=== PATIENT | male | born 1935 | race Caucasian/White ===

== ENCOUNTER 2016-06-21 12:26 | Outpatient (CLI) | payer MEDICARE | END 2016-06-21 12:27 | disposition home or self-care (01) | DX: R33.9 Retention of urine, unspecified (principal); S91.301D Unspecified open wound, right foot, subsequent encounter ==

== ENCOUNTER 2016-08-30 08:00 | Outpatient (CLI) | payer MEDICARE | END 2016-08-30 08:01 | disposition home or self-care (01) | LOC: LAB.F 08:00 | PROVIDERS: ATTEND Internal Medicine | DX: S91.301A Unspecified open wound, right foot, initial encounter (principal) | CPT/HCPCS: 87070; 87077; 87205 ==

== ENCOUNTER 2016-11-29 08:00 | Outpatient (CLI) | payer MEDICARE ==
[2016-11-29 18:38] LABS: CALCIUM 9.6 mg/dL (8.5-10.3); CREATININE 1.8 mg/dL (0.6-1.2); POTASSIUM 4.4 mmol/L (3.5-5.0)
== END 2016-11-29 08:01 | disposition home or self-care (01) ==
LOC: LAB.F 08:00
PROVIDERS: ATTEND Family Medicine
DX: E87.1 Hypo-osmolality and hyponatremia (principal)
CPT/HCPCS: 36415; 80048

== ENCOUNTER 2016-12-03 10:17 | Observation (INO) | payer MEDICARE ==
[2016-12-03 10:55] LABS: CALCIUM 9.6 mg/dL (8.5-10.3); CREATININE 1.7 mg/dL (0.6-1.2); POTASSIUM 4.5 mmol/L (3.5-5.0)
[2016-12-03] MEDS ORDERED: SODIUM CHLORIDE 0.9% 1,000 ML IV ONE (11:50)
[2016-12-03 12:03] LABS: BASOPHILS # (AUTO) 0.1 10^3/uL (0.0-0.1); BASOPHILS % (AUTO) 0.8 %; EOSINOPHILS # (AUTO) 0.2 10^3/uL (0.0-0.7); EOSINOPHILS % (AUTO) 2.1 %; HCT - HEMATOCRIT 37.3 % (42.0-52.0); HGB - HEMOGLOBIN 12.7 g/dL (14.0-18.0); LYMPHOCYTES # (AUTO) 1.9 10^3/uL (1.5-3.5); LYMPHOCYTES % (AUTO) 22.6 %; MEAN CORPUSCULAR HEMOGLOBIN 31.3 pg (27.0-31.0); MEAN CORPUSCULAR HGB CONC 34.2 g/dL (32.0-36.0); MEAN CORPUSCULAR VOLUME 91.7 fL (80.0-94.0); MEAN PLATELET VOLUME 7.8 fL (7.4-11.4); MONOCYTES # (AUTO) 0.6 10^3/uL (0.0-1.0); MONOCYTES % (AUTO) 7.1 %; NEUTROPHILS # (AUTO) 5.8 10^3/uL (1.5-6.6); NEUTROPHILS % (AUTO) 67.4 %; RED BLOOD COUNT 4.07 10^6/uL (4.70-6.10); RED CELL DISTRIBUTION WIDTH 14.2 % (12.0-15.0); UNCORRECTED WHITE BLOOD COUNT 8.6 x10^3/uL; WHITE BLOOD COUNT 8.6 x10^3/uL (4.8-10.8)
[2016-12-03] MEDS ORDERED: SODIUM CHLORIDE FLUSH 0.9% 10 ML SYRINGE IVP ONE (12:06)
--- NOTE | 2016-12-03 12:26 | ED Physician Documentation ---
History of Present Illness - Stated complaint Stated Complaint: LOW SODIUM LEVEL - Chief complaint Chief Complaint: General - Additonal information Additional information: hx from pt 81 male hx HTN and urinary retention s/p back surgery seen by PMD Dr Magen Mendez last week for a chronic foot wound had labs and Na was 128 Na was repeated Friday and was 124 results received today and pt sent to the ER he states he feels fine - not weak or confused I called PMD and discussed with him and he rec pt be admitted for wup of hyponatremia, correction of Na and proof it is trending up not down Review of Systems Constitutional: denies: Fever Cardiac: denies: Chest pain / pressure Respiratory: denies: Dyspnea GI: denies: Abdominal Pain Neurologic: denies: Generalized weakness, Focal weakness, Numbness, Altered mental status Endocrine: denies: Easy bruising / bleeding Immunocompromised: denies: Immunocompromised PD PAST MEDICAL HISTORY - Past Medical History Past Medical History: Yes Cardiovascular: Hypertension Respiratory: None Neuro: None Endocrine/Autoimmune: None GI: GERD : Benign prostate hypertrophy, Retention, Other HEENT: None Psych: None Musculoskeletal: Osteoarthritis Derm: None, Other - Past Surgical History Past Surgical History: Yes General: Cholecystectomy HEENT: Tonsil/Adenoidectomy - Present Medications Home Medications: Ambulatory Orders Medication Instructions Recorded Confirmed Aspirin [Aspir 81] 81 mg PO DAILY 12/25/13 12/25/13 Hydrochlorothiazide 25 mg PO DAILY 12/25/13 12/25/13 Lisinopril 10 mg PO DAILY 12/25/13 12/25/13 Propranolol HCl 40 mg PO BID 12/25/13 12/25/13 - Allergies Allergies/Adverse Reactions: Allergies Allergy/AdvReac Type Severity Reaction Status Date / Time ceftriaxone Allergy Respiratory Verified 12/20/13 06:30 - Social History Does the pt smoke?: No Smoking Status: Never smoker Does the pt drink ETOH?: Yes Does the pt have substance abuse?: No - Immunizations Immunizations are current?: Yes - POLST Patient has POLST: No PD ED PE NORMAL - Vitals Vital signs reviewed: Yes - Cardiac Cardiac: RRR - Respiratory Respiratory: No respiratory distress, Clear bilaterally - Abdomen Abdomen: Soft, Non tender - Neuro Neuro: Alert and oriented X 3 Results - Vitals Vitals: Vital Signs - 24 hr 10/17/17 10/17/17 10:22 11:22 Temperature 37.1 C 36.7 C Heart Rate 69 59 L Respiratory 16 18 Rate Blood Pressure 166/78 H 138/80 H O2 Saturation 100 98 Oxygen O2 Source Room air - Labs Labs: Laboratory Tests 12/03/16 12/03/16 10:42 10:42 WBC 8.6 RBC 4.07 L Hgb 12.7 L Hct 37.3 L MCV 91.7 MCH 31.3 H MCHC 34.2 RDW 14.2 Plt Count 264 MPV 7.8 Neut # 5.8 Lymph # 1.9 [place] # 0.6 Eos # 0.2 Baso # 0.1 Absolute Nucleated RBC 0.00 Nucleated RBC % 0.0 Sodium 124 L Potassium 4.5 Chloride 89 L Carbon Dioxide 25 Anion Gap 10.0 BUN 34 H Creatinine 1.7 H Estimated GFR (MDRD) 39 L Glucose 123 H Calcium 9.6 - Rads (name of study) CXR Radiology: See rad report (no acute) PD MEDICAL DECISION MAKING - [facility]ed problem summary list, spoke to hospitalist Dr Sutherland at 1225 and she will admit Departure - Departure Disposition: ED Place in Observation Clinical Impression: Hyponatremia, Renal insufficiency Condition: Good
--- NOTE | 2016-12-03 13:07 | XRAY Preliminary Report ---
Exam: XR CHEST 2 VIEW PA/LAT IMPRESSION: No acute intrathoracic plain film abnormality. [facility] SITE ID: [id number]
--- NOTE | 2016-12-03 13:08 | XRAY Report ---
EXAM: CHEST RADIOGRAPHY EXAM DATE: 12/03/2016 12:35 PM. CLINICAL HISTORY: Hyponatremia. COMPARISON: None. TECHNIQUE: 2 views. FINDINGS: Lungs/Pleura: No focal opacities evident. No pleural effusion. No pneumothorax. Normal volumes. Mediastinum: Heart and mediastinal contours are unremarkable. Other: None. IMPRESSION: No acute intrathoracic plain film abnormality. [facility] Referring Provider Line: [phone] SITE ID: [id number]
[2016-12-03] MEDS ORDERED: ONDANSETRON ODT 4 MG TABLET TL PRN (13:30)
[2016-12-03] MEDS ORDERED: ACETAMINOPHEN 325 MG TABLET PO PRN (13:30)
[2016-12-03] MEDS ORDERED: SODIUM CHLORIDE FLUSH 0.9% 10 ML SYRINGE IVP PRN (13:30)
[2016-12-03] MEDS ORDERED: ONDANSETRON 4 MG/2 ML VIAL IVP PRN (13:30)
[2016-12-03 14:28] LABS: MAGNESIUM 2.2 mg/dL (1.7-2.8); PHOSPHORUS 3.2 mg/dL (2.5-4.6)
--- NOTE | 2016-12-03 14:49 | CT Preliminary Report ---
Exam: CT CHEST W/O IMPRESSION: 1. Negative chest CT. No evidence of lung mass. No acute pulmonary process. 2. Normal heart size. There are coronary artery calcifications. 3. Visualized portions of the upper abdomen demonstrate no acute abnormalities. [facility] SITE ID: [id number]
--- NOTE | 2016-12-03 14:51 | CT Report ---
EXAM: CT CHEST EXAM DATE: 12/03/2016 02:21 PM. CLINICAL HISTORY: Hyponatremia. COMPARISONS: 12/03/2016. TECHNIQUE: Routine helical CT imaging was performed through the chest. IV contrast: None. Reconstruct ions: Coronal and sagittal. In accordance with CT protocol optimization, one or more of the following dose reduction techniques w ere utilized for this exam: automated exposure control, adjustment of mA and/or KV based on patient s ize, or use of iterative reconstructive technique. FINDINGS: Lungs/Pleura: No nodules, bronchial thickening, consolidation, or edema. Pulmonary vasculature is nor mal. No pericardial or pleural effusion. No pneumothorax. Mediastinum: The heart size is within normal limits. There are coronary artery calcifications. There are no enlarged axillary, supraclavicular, mediastinal, or hilar lymph nodes. Bones: Unremarkable. Visualized Abdomen: Unremarkable. Other: None. IMPRESSION: 1. Negative chest CT. No evidence of lung mass. No acute pulmonary process. 2. Normal heart size. There are coronary artery calcifications. 3. Visualized portions of the upper abdomen demonstrate no acute abnormalities. [facility] Referring Provider Line: [phone] SITE ID: [id number]
[2016-12-03] MEDS: SODIUM CHLORIDE 0.9% 1,000 ML IV SCH (15:14)
[2016-12-03] MEDS: SODIUM CHLORIDE FLUSH 0.9% 10 ML SYRINGE IVP SCH ×2 (15:14→20:59)
--- NOTE | 2016-12-03 16:23 | HISTORY & PHYSICAL EXAMINATION ---
DATE OF ADMISSION: 12/03/2016 CHIEF COMPLAINT: Hyponatremia. HISTORY OF PRESENT ILLNESS: The patient is a very pleasant 81-year-old elderly gentleman who presente d today through the ER as a direct admission by his primary care provider, Dr. Boss for hyponatrem ia. The patient has recently been on hydrochlorothiazide and lisinopril medication and today had his sodium rechecked after 3 days with a sodium level being at 128 and now is at 124. The patient was sen t to the ER to be admitted for further evaluation for his low sodium. The patient is completely asymp tomatic. He has stopped his hydrochlorothiazide and has taken alternative medications for his blood p ressure readings if elevated. Lab work was also obtained at the primary care provider's office. Davidaddison aris all his other blood work is within normal limits. Three months ago the patient did have an chidi vated calcium level at 11.1. Prior to that at 6 months it was at 10.3. The patient's only significant illness/chronic illness is worsening prostate enlargement which he does self-catheterize himself. Th e patient has had no chest pain. No nausea, vomiting, diarrhea, constipation. He states he does sleep well at night. His diet consists of cereal in the morning for breakfast, he does see a lot of frozen dinners, which does contain a lot of sodium which you would expect to see a gentleman with a normal sodium level with this type of diet. He states he has bowel movements approximately every 1-2 days. Gladys sams does have a chronic foot ulcer that is being treated with no acute signs of infection, but is slow at healing. The patient was evaluated at bedside. He is alert and oriented x3, very pleasant with no acute sympto ms for hyponatremia. He will be kept on observation tonight for reevaluation, additional lab work and to replete his sodium level. ALLERGIES: NO KNOWN DRUG ALLERGIES. PAST MEDICAL HISTORY: 1. Hypertension. 2. Foot ulcers. 3. Spinal stenosis. 4. Constipation. 5. Urinary retention. 6. History of elevated PSA. 7. Abdominal hernia. 8. Chronic kidney disease stage III with a GFR 39. 9. Macular degeneration. 10. Chronic opiate therapy. 11. Cataracts. 12. History of foot drop. HOME MEDICATIONS: 1. Inderal 20 mg take 1 tablet 2 times daily. 2. Percocet 5/325 at 1 tablet by mouth every 4-6 hours as needed for pain. 3. Bactroban apply to affected area the foot as needed. 4. Lisinopril 5 mg 1 tablet every day. 5. Aspirin 81 mg delayed release 1 tablet daily. 6. Hydrochlorothiazide 25 mg tablet 1 tablet daily. This is on hold at this time. 7. Multivitamin oral 1 tablet daily. PAST SURGICAL HISTORY: 1. Back surgery for spinal stenosis. 2. Prostate screening/biopsy. 3. Debridement of foot ulcer. SOCIAL HISTORY: The patient states that he does not smoke cigarettes. He occasionally has a glass of alcohol and does not use any illicit drugs. He was for 44 years, lost his approximately 6 years ago. He lives here on the [facility], grew up in [place], was [employer] and does have a step-daughter who does come to see him who lives in [place]. FAMILY HISTORY: The patient states his mom of colon cancer. Father had a stroke. REVIEW OF SYSTEMS: Ten systems have been reviewed and negative, with exception as discussed in HPI pr ior. He is negative for nausea, vomiting, diarrhea, constipation. He is negative for headache, numbne ss, tingling to extremities. He is positive for urinary retention, does self-catheterization due to t he trauma he underwent with his back surgery. Denies lightheadedness or dizziness. PHYSICAL EXAMINATION: CONSTITUTIONAL: The patient is alert, in no acute distress. VITAL SIGNS: Temperature 36.7, heart rate 63, blood pressure is 150/78, respirations 16, oxygen satur ation 97% on room air. EYES: Pupils are equal, round and reactive to light and accommodation. Conjunctivae and sclerae was n onicteric, not injected. ENT: Nares are patent. No nasal discharge. Oropharynx with no masses, exudates or lesions. Mucous mem branes are moist. NECK: Supple. No thyromegaly. No lymphadenopathy. PULMONARY: Breath sounds are clear to auscultation and percussion bilaterally. No retractions or nasa l flaring, or increased work of breathing. No wheezes, rhonchi, or crackles noted. CARDIOVASCULAR: No S3. Normal PMI. No JVD. GASTROINTESTINAL: Abdomen was soft, nontender. Bowel sounds are noted. Nondistended. No tenderness or organomegaly. MUSCULOSKELETAL: Extremities: The patient has no edema noted, able to move upper and lower extremitie s without difficulty. He does have slight gait instability but does walk with a walker and does shuff le his feet. No cyanosis. Pulses are palpable to upper and lower extremities. He does have a chronic nonhealing foot wound on the right leg. NEUROLOGIC: The patient is alert. GCS 15. Cranial nerves 2 through 7 were intact. Sensory was intact. PSYCHIATRIC: He is oriented x3, behavior is appropriate, cooperative and pleasant mood. HEMATOLOGIC: No active bleeding. The patient is hemodynamically stable. LYMPHATICS: No cervical, axillary, or supraclavicular lymphadenopathy is noted. GENITOURINARY: He had no CVA tenderness, bladder slightly distended. No masses were palpated. LABORATORY AND DIAGNOSTIC DATA: I personally reviewed all laboratory and diagnostic data in the medic al record. The results are as follows: Sodium 124, chloride 89, BUN 34, creatinine 1.7, glucose 123, GFR is 39, calcium 9.6. WBC is 8.6, hemoglobin is 12.7. Urinalysis is pending. DIAGNOSTICS: I personally reviewed the diagnostic data in the medical record. The results are as foll ows. 1. CT of the chest, preliminary report showed negative chest CT, no evidence lung mass. No acute pulm onary process. Normal heart size. There are no coronary artery calcifications and visualized portions of the upper abdomen demonstrates no acute abnormalities. ASSESSMENT: 1. Acute hyponatremia, possibly due to a daily medication. PLAN: The patient had been on hydrochlorothiazide and lisinopril. Hydrochlorothiazide was stopped. He is continuing on lisinopril and also taking propranolol, as well. Will continue to monitor with pearl y labs draws. The patient has been given IV fluids, normal saline for gentle hydration. Will continue to monitor output and kidney function. He does have chronic kidney disease stage III and his GFR at this time is 39. Will give salt tablet, 1 gram. The patient is completely asymptomatic. Will also eitan ck thyroid panel since the patient did have hypercalcemia just recently, however, is within normal li mits at this time, but this can also decrease his sodium level as well. 2. Acute on chronic urinary retention with history of benign prostatic hypertrophy and self-catheteri zation. PLAN: We will continue to have the patient self catheterize. Continue to monitor output. We will get a urinalysis. 3. Hypertensive heart disease with chronic kidney disease stage III, GFR 39 with mild dehydration. PLAN: Will gently hydrate the patient with normal saline IV fluids at 75 mL an hour. Continue to courtney tor kidney function and output. Avoid nephrotoxic medications. We will hold lisinopril along with hyd rochlorothiazide. The patient still is on propranolol. 4. Chronic back pain with history of spinal stenosis status post back surgery. PLAN: Continue the patient on Percocet with addition of Colace for constipation. Monitor daily output of both urine and stool. 5. Chronic foot drop with nonhealing foot ulcer on right leg. PLAN: Continue to monitor CBC, monitor wound daily for changes. We will continue to monitor for fever or signs or symptoms of sepsis and will provide wound care if necessary. 6. Deep venous thrombosis prophylaxis with Lovenox and SCDs. 7. The patient is a FULL CODE STATUS. 8. The patient on observation status. Expected to be over 1 night. Time spent at bedside with the patient was approximately 40 minutes for evaluation, assessment and pl anning. Risk assessment/disposition: The patient is high risk for worsening comorbidities so will require at least 1 night overnight stay for evaluation for improvement of the sodium level. We will monitor for other additional electrolytes. The patient expected to be discharged within the next 24 hours. JOB #: [id number] EXT JOB #:[id number]
[2016-12-03] MEDS: SODIUM CHLORIDE 1 GM TABLET PO SCH (18:54)
[2016-12-03] MEDS: HYDROcod/ACETAM 5/325 MG TABLET PO PRN ×2 (18:54→23:33)
[2016-12-03 19:06] LABS: BILIRUBIN,URINE NEGATIVE (NEGATIVE)
[2016-12-03 19:13] LABS: UR CULTURE IF IND NOT INDICATED
[2016-12-03] MEDS ORDERED: ZOLPIDEM 5 MG TABLET PO PRN (20:25)
[2016-12-03] MEDS: PROPRANOLOL 40 MG TABLET PO SCH (20:59)
[2016-12-04] MEDS: SODIUM CHLORIDE 0.9% 1,000 ML IV SCH ×2 (01:24→11:11)
[2016-12-04] MEDS: SODIUM CHLORIDE FLUSH 0.9% 10 ML SYRINGE IVP SCH (05:24)
[2016-12-04 05:34] LABS: CALCIUM 8.9 mg/dL (8.5-10.3); CREATININE 1.3 mg/dL (0.6-1.2); POTASSIUM 3.6 mmol/L (3.5-5.0)
[2016-12-04] MEDS ORDERED: SODIUM CHLORIDE 1 GM TABLET PO ONE (07:34)
--- NOTE | 2016-12-04 08:29 | Discharge Plan ---
Discharge Plan Disposition: 01 Home, Self Care Condition: Good Prescriptions: Lisinopril 10 mg PO DAILY #10 tablet Diet: Cardiac Activity Restrictions: No Restrictions Shower Restrictions: No Driving Restrictions: No Assistance Devices: Walker, Cane Weight Bearing: Full Weight Instruction Topics: Antidiuretic Hormone, Sodium Blood Additional Instructions or Follow Up instructions: PLEASE TAKE ALL HOME MEDICATIONS PRESCRIBED. YOU NEED TO ADD MORE SALT IN YOUR DIET DAILY. CONTINUE TO DRINK PLENTY OF WATER DURING THE DAY. EAT A HEART HEALTHY DIET AND AVOID SODA AND LIMIT CAFFEINE. GET PLENTY OF EXERCISE DURING THE DAY AND GET PLENTY OF SLEEP AT NIGHT. 7-8 HOURS IS THE BEST PLEASE SEE YOUR PRIMARY CARE PROVIDER WITHIN 1-2 DAYS OF DISCHARGE TO RECHECK YOUR SODIUM LEVELS. No Smoking: If you smoke, Please STOP! Call for help. Follow-up with: ABI MI MD [Primary Care Provider] -
--- NOTE | 2016-12-04 08:35 | DISCHARGE SUMMARY ---
"Discharge Summary Admit Date: 12/03/16 Discharge Date: 12/04/16 Discharging Provider: MEHNAZ FRIEND APRN Primary Care Provider: Magen Scales MD Code Status: Do Not Attempt Resuscitation Condition at Discharge: Good Discharge Disposition: 01 Home, Self Care Discharge Facility Name: HOME - DIAGNOSES Admission Diagnoses: 1. ACUTE HYPONATREMIA 2. CHRONIC URINARY RETENTION WITH NEUROGENIC BLADDER S/P SURGERY FOR SPINAL STENOSIS 3. HISTORY OF PROSTATE CANCER SURGERY 4. HISTORY OF SELF CATHETERIZATION OF NEUROGENIC BLADDER Discharge Diagnoses with Status of Each Condition: 1. ACUTE HYPONATREMIA SECONDARY TO MILD DEHYDRATION FROM MEDICATION HCTZ 2. CHRONIC URINARY RETENTION WITH NEUROGENIC BLADDER S/P SURGERY FOR SPINAL STENOSIS LUMBAR REGION 3. HISTORY OF PROSTATE CANCER SURGERY 4. HISTORY OF SELF CATHETERIZATION OF NEUROGENIC BLADDER - HPI History of Present Illness: hx from pt 81 male hx HTN and urinary retention s/p back surgery seen by PMD Dr Magen Chawlagate last week for a chronic foot wound had labs and Na was 128 Na was repeated Friday and was 124 results received today and pt sent to the ER he states he feels fine - not weak or confused I called PMD and discussed with him and he rec pt be admitted for wup of hyponatremia, correction of Na and proof it is trending up not down - CONSULTS | PROCEDURES Consultations: NONE Procedures: NONE - HOSPITAL COURSE Hospital Course: Patient is a pleasant 81 year old gentleman who was admitted from PCP office with complaint of low sodium at 124. Patient had been on new medications for his blood pressure, HCTZ, when he presented to his PCP with blood work completed showing a NA of 124. She sent patient to the ER and he was admitted for electrolyte imbalance and for hydration with IVF and sodium monitoring. He had a thyroid panel completed to rule out possible thyroid issues causing the low sodium. Thyroid panel was negative and normal. He received IVF NS at 100ml hr for gentle hydration and sodium improved to 128. He was given salt tablets 2gm total. His other electrolytes were monitored including magnesium and potassium and both were in normal range. His chloride was low and corrected with IVF. CBC checked daily and normal with slight anemia, unspecified. He worked with physical therapy for gait stability. He was given Lovenox and SCD for DVT prophylaxis. He continued on lisinopril for blood pressure. He also was taking amlodipine as well. He was on an aspirin daily. He continued on a cardiac diet. He had a history of urinary retention due to prostate cancer and removal in the past and he performs self catheterization for a neurogenic bladder from surgery for chronic spinal stenosis. His urinalysis was completed and showed trace leukesterase with no UTI. On day of discharge he was ambulating with assist and able to return to home with assist. Vitals signs WNL and sodium was at 128 before receiving another salt tablet and additional IVF. - ALLERGIES Allergies/Adverse Reactions: Allergies Allergy/AdvReac Type Severity Reaction Status Date / Time ceftriaxone Allergy Respiratory Verified 12/20/13 06:30 - MEDICATIONS Home Medications: Ambulatory Orders Medication Instructions Recorded Confirmed Aspirin [Aspir 81] 81 mg PO DAILY 12/25/13 12/03/16 Propranolol HCl 40 mg PO BID 12/25/13 12/03/16 Oxycodone HCl/Acetaminophen 1 each PO Q6H PRN 12/03/16 12/03/16 [Oxycodone-Acetaminophen 5-325] Lisinopril 10 mg PO DAILY #10 tablet 12/04/16 Home Medications Other | Comments: PATIENT WAS TAKING HCTZ. THIS WAS STOPPED BECAUSE HIS SODIUM BECAME LOW AND HE WAS DEHYDRATED. LISINOPRIL WAS INCREASED TO 10MG DAILY AND HE WAS INSTRUCTED TO INCREASE HIS BP MEDICATION LISINOPRIL AND STOP THE HCTZ AT HOME UNTIL HE SEES HIS PCP TO REPEAT HIS SODIUM LEVELS. - PHYSICAL EXAM AT DISCHARGE General Appearance: positive: No acute distress, Alert. negative: Anxious Eyes Bilateral: positive: Normal inspection, PERRL, EOMI. negative: No lid inflammation ENT: positive: ENT inspection nml, Pharynx nml, No signs of dehydration, Dry mucous membranes Neck: positive: Nml inspection, Thyroid nml, No JVD, Trachea midline Respiratory: positive: Chest non-tender, No respiratory distress, Breath sounds nml Cardiovascular: positive: Regular rate & rhythm, No murmur, No gallop. negative : JVD present, Gallop/S3 Peripheral Pulses: positive: 2+ Abdomen: positive: Non-tender, No organomegaly, Nml bowel sounds, No distention. negative: Tenderness Back: positive: Nml inspection. negative: CVA tenderness (R), CVA tenderness (L ) Skin: positive: Color nml, No rash, Warm, Dry Extremities: positive: Non-tender, Full ROM, Nml appearance, No pedal edema Neurologic/Psychiatric: positive: Oriented x3, CN's nml (2-12), Motor nml, Sensation nml, Mood/affect nml. negative: Weakness, Slurred/abnml speech Reflexes: Knee (R): 2+, Knee (L): 2+ - LABS Result Diagrams: 12/04/16 08:41 12/04/16 05:20 Other Lab Results: Abnormal Lab Results 12/03/16 12/03/16 12/03/16 10:42 10:42 18:50 RBC 4.07 10^6/uL L 10^6/uL (4.70-6.10) Hgb 12.7 g/dL L g/dL (14.0-18.0) Hct 37.3 % L % (42.0-52.0) MCH 31.3 pg H pg (27.0-31.0) Sodium 124 mmol/L L mmol/L (135-145) Chloride 89 mmol/L L mmol/L (101-111) BUN 34 mg/dL H mg/dL (6-20) Creatinine 1.7 mg/dL H mg/dL (0.6-1.2) Estimated GFR (MDRD) 39 L (>89) Glucose 123 mg/dL H mg/dL (70-100) Ur Leukocyte Esterase TRACE H (NEGATIVE) Urine WBC 11-25 /HPF H /HPF (0-3) Ur Squamous Epith Cells MOD Squamous H (<= Few) Urine Bacteria Many /HPF H /HPF (None Seen) 12/04/16 05:20 RBC Hgb Hct MCH Sodium 128 mmol/L L mmol/L (135-145) Chloride 97 mmol/L L mmol/L (101-111) BUN 25 mg/dL H mg/dL (6-20) Creatinine 1.3 mg/dL H mg/dL (0.6-1.2) Estimated GFR (MDRD) 53 L (>89) Glucose 109 mg/dL H mg/dL (70-100) Ur Leukocyte Esterase Urine WBC Ur Squamous Epith Cells Urine Bacteria - DIAGNOSTIC IMAGING Diagnostic Imaging Results: Final report reviewed - FOLLOW UP Follow Up: PATIENT WAS INSTRUCTED TO SEE HIS PCP WITHIN 1-2 DAYS OF DISCHARGE TO CHECK HIS SODIUM LEVEL. HE WAS INSTRUCTED TO STILL TAKE HOME MEDICATIONS PRESCRIBED BUT TO HOLD HIS HCTZ TILL SEES HIS PCP. HE VERBALLY UNDERSTOOD INSTRUCTIONS GIVEN AND ABLE TO BE DISCHARGED HOME WITH FRIEND - TIME SPENT Time Spent in Discharge (Minutes): 40 (FOR DISCHARGE PLANNING AND EDUCATION)"
[2016-12-04] MEDS: PROPRANOLOL 40 MG TABLET PO SCH (08:41)
[2016-12-04] MEDS: HYDROcod/ACETAM 5/325 MG TABLET PO PRN (08:41)
[2016-12-04] MEDS: SODIUM CHLORIDE 1 GM TABLET PO SCH (08:41)
[2016-12-04 08:50] LABS: BASOPHILS # (AUTO) 0.1 10^3/uL (0.0-0.1); BASOPHILS % (AUTO) 0.6 %; EOSINOPHILS # (AUTO) 0.2 10^3/uL (0.0-0.7); HCT - HEMATOCRIT 36.4 % (42.0-52.0); HGB - HEMOGLOBIN 12.5 g/dL (14.0-18.0); LYMPHOCYTES # (AUTO) 1.2 10^3/uL (1.5-3.5); LYMPHOCYTES % (AUTO) 12.7 %; MEAN CORPUSCULAR HEMOGLOBIN 31.5 pg (27.0-31.0); MEAN CORPUSCULAR HGB CONC 34.4 g/dL (32.0-36.0); MEAN CORPUSCULAR VOLUME 91.6 fL (80.0-94.0); MEAN PLATELET VOLUME 7.1 fL (7.4-11.4); MONOCYTES # (AUTO) 0.5 10^3/uL (0.0-1.0); MONOCYTES % (AUTO) 5.4 %; NEUTROPHILS # (AUTO) 7.3 10^3/uL (1.5-6.6); NEUTROPHILS % (AUTO) 79.3 %; RED BLOOD COUNT 3.98 10^6/uL (4.70-6.10); RED CELL DISTRIBUTION WIDTH 14.3 % (12.0-15.0); UNCORRECTED WHITE BLOOD COUNT 9.3 x10^3/uL; WHITE BLOOD COUNT 9.3 x10^3/uL (4.8-10.8)
[2016-12-04] MEDS ORDERED: LISINOPRIL 5 MG TABLET PO SCH (09:00)
[2016-12-04] MEDS ORDERED: POLYETHYLENE GLYCOL 3350 17 GM PACKET PO SCH (09:00)
[2016-12-04] MEDS ORDERED: ASPIRIN EC 81 MG TABLET PO SCH (09:00)
[2016-12-04 12:06] VITALS: BP 171/81
== END 2016-12-04 12:47 | disposition home or self-care (01) ==
LOC: ED 10:17 → OBS 13:30
PROVIDERS: ADMIT Specialist; ATTEND Nurse Practitioner
DX: E86.0 Dehydration (principal); T50.2X5A Adverse effect of carbonic-anhydrase inhibitors, benzothiadiazides and other diuretics, initial encounter; I12.9 Hypertensive chronic kidney disease with stage 1 through stage 4 chronic kidney disease, or unspecified chronic kidney disease; N18.3 Chronic kidney disease, stage 3 (moderate); G97.82 Other postprocedural complications and disorders of nervous system; N31.8 Other neuromuscular dysfunction of bladder; R33.8 Other retention of urine; Z90.79 Acquired absence of other genital organ(s); H35.30 Unspecified macular degeneration; M21.379 Foot drop, unspecified foot; Y83.8 Other surgical procedures as the cause of abnormal reaction of the patient, or of later complication, without mention of misadventure at the time of the procedure; Z66 Do not resuscitate; Z85.46 Personal history of malignant neoplasm of prostate; Z79.891 Long term (current) use of opiate analgesic; Z79.82 Long term (current) use of aspirin; Z79.899 Other long term (current) drug therapy; R26.9 Unspecified abnormalities of gait and mobility; S91.301D Unspecified open wound, right foot, subsequent encounter
CPT/HCPCS: 36415; 51701; 71020; 71250; 80048; 81001; 83735; 83930; 83935; 83970; 84100; 84300; 84436; 84443; 84481; 85025; 96360; 96361; 97162; 99283; 99284; A9270; G0378; G8978; G8979; G8980; 83519; 87086

== ENCOUNTER 2016-12-13 08:00 | Outpatient (CLI) | payer MEDICARE ==
[2016-12-13 18:15] LABS: ALBUMIN/GLOBULIN RATIO 1.7 (1.0-2.2); BILIRUBIN,TOTAL 0.6 mg/dL (0.2-1.0); CALCIUM 10.1 mg/dL (8.5-10.3); CREATININE 1.5 mg/dL (0.6-1.2); POTASSIUM 4.8 mmol/L (3.5-5.0); TOTAL PROTEIN 6.7 g/dL (6.7-8.2)
== END 2016-12-13 08:01 | disposition home or self-care (01) ==
LOC: LAB.F 08:00
PROVIDERS: ATTEND Internal Medicine
DX: E87.1 Hypo-osmolality and hyponatremia (principal)
CPT/HCPCS: 80053

== ENCOUNTER 2017-01-03 08:00 | Outpatient (CLI) | payer MEDICARE ==
[2017-01-03 17:56] LABS: BASOPHILS # (AUTO) 0.1 10^3/uL (0.0-0.1); BASOPHILS % (AUTO) 0.7 %; EOSINOPHILS # (AUTO) 0.4 10^3/uL (0.0-0.7); EOSINOPHILS % (AUTO) 3.9 %; HCT - HEMATOCRIT 37.7 % (42.0-52.0); HGB - HEMOGLOBIN 12.7 g/dL (14.0-18.0); LYMPHOCYTES # (AUTO) 1.6 10^3/uL (1.5-3.5); LYMPHOCYTES % (AUTO) 16.4 %; MEAN CORPUSCULAR HEMOGLOBIN 32.2 pg (27.0-31.0); MEAN CORPUSCULAR HGB CONC 33.6 g/dL (32.0-36.0); MEAN CORPUSCULAR VOLUME 95.6 fL (80.0-94.0); MEAN PLATELET VOLUME 8.5 fL (7.4-11.4); MONOCYTES # (AUTO) 0.6 10^3/uL (0.0-1.0); MONOCYTES % (AUTO) 6.8 %; NEUTROPHILS # (AUTO) 6.9 10^3/uL (1.5-6.6); NEUTROPHILS % (AUTO) 72.2 %; RED BLOOD COUNT 3.94 10^6/uL (4.70-6.10); RED CELL DISTRIBUTION WIDTH 14.4 % (12.0-15.0); UNCORRECTED WHITE BLOOD COUNT 9.6 x10^3/uL; WHITE BLOOD COUNT 9.6 x10^3/uL (4.8-10.8)
[2017-01-03 19:43] LABS: ALBUMIN/GLOBULIN RATIO 1.6 (1.0-2.2); BILIRUBIN,TOTAL 0.5 mg/dL (0.2-1.0); CALCIUM 9.6 mg/dL (8.5-10.3); CREATININE 1.6 mg/dL (0.6-1.2); POTASSIUM 4.5 mmol/L (3.5-5.0); TOTAL PROTEIN 6.3 g/dL (6.7-8.2)
== END 2017-01-03 08:01 | disposition home or self-care (01) ==
LOC: LAB.R 08:00
PROVIDERS: ATTEND Nurse Practitioner Family
DX: R79.89 Other specified abnormal findings of blood chemistry (principal); T81.89XA Other complications of procedures, not elsewhere classified, initial encounter
CPT/HCPCS: 36415; 80053; 85025

== ENCOUNTER 2017-06-03 08:00 | Outpatient (CLI) | payer MEDICARE ==
[2017-06-03 18:35] LABS: ALBUMIN 3.8 g/dL (3.2-5.5); ALBUMIN/GLOBULIN RATIO 1.3 (1.0-2.2); BILIRUBIN,TOTAL 0.6 mg/dL (0.2-1.0); CALCIUM 9.4 mg/dL (8.5-10.3); CREATININE 1.5 mg/dL (0.6-1.2); TOTAL PROTEIN 6.7 g/dL (6.7-8.2)
== END 2017-06-03 08:01 ==
LOC: LAB.R 08:00
PROVIDERS: ATTEND Nurse Practitioner Family
DX: R79.89 Other specified abnormal findings of blood chemistry (principal)
CPT/HCPCS: 80053

== ENCOUNTER 2017-12-19 11:40 | Outpatient (CLI) | payer MEDICARE ==
[2017-12-19 17:38] LABS: BASOPHILS # (AUTO) 0.1 10^3/uL (0.0-0.1); BASOPHILS % (AUTO) 0.9 %; EOSINOPHILS # (AUTO) 0.3 10^3/uL (0.0-0.7); EOSINOPHILS % (AUTO) 4.2 %; HGB - HEMOGLOBIN 11.8 g/dL (14.0-18.0); LYMPHOCYTES # (AUTO) 1.4 10^3/uL (1.5-3.5); LYMPHOCYTES % (AUTO) 19.8 %; MEAN CORPUSCULAR HEMOGLOBIN 31.7 pg (27.0-31.0); MEAN CORPUSCULAR HGB CONC 33.6 g/dL (32.0-36.0); MEAN CORPUSCULAR VOLUME 94.3 fL (80.0-94.0); MEAN PLATELET VOLUME 8.7 fL (7.4-11.4); MONOCYTES # (AUTO) 0.5 10^3/uL (0.0-1.0); MONOCYTES % (AUTO) 7.6 %; NEUTROPHILS # (AUTO) 4.8 10^3/uL (1.5-6.6); NEUTROPHILS % (AUTO) 67.5 %; PLT - PLATELET COUNT 197 10^3/uL (130-450); RED BLOOD COUNT 3.72 10^6/uL (4.70-6.10); RED CELL DISTRIBUTION WIDTH 13.9 % (12.0-15.0)
== END 2017-12-19 23:59 | disposition home or self-care (01) ==
LOC: LAB.R 11:40
PROVIDERS: ATTEND Physician Assistant
DX: N18.3 Chronic kidney disease, stage 3 (moderate) (principal)
CPT/HCPCS: 80053; 85025

== ENCOUNTER 2017-12-26 13:30 | Outpatient (CLI) | payer MEDICARE ==
[2017-12-26 17:46] LABS: ALBUMIN 3.8 g/dL (3.2-5.5); ALBUMIN/GLOBULIN RATIO 1.3 (1.0-2.2); BILIRUBIN,TOTAL 0.7 mg/dL (0.2-1.0); CALCIUM 9.3 mg/dL (8.5-10.3); CREATININE 1.5 mg/dL (0.6-1.2); TOTAL PROTEIN 6.8 g/dL (6.7-8.2)
== END 2017-12-26 23:59 | disposition home or self-care (01) ==
LOC: LAB.R 13:30
PROVIDERS: ATTEND Physician Assistant
DX: N18.3 Chronic kidney disease, stage 3 (moderate) (principal)
CPT/HCPCS: 80053

== ENCOUNTER 2018-01-30 10:55 | Outpatient (CLI) | payer MEDICARE | END 2018-01-30 23:59 | disposition home or self-care (01) | LOC: LAB.R 10:55 | PROVIDERS: ATTEND Family Medicine | DX: S91.301D Unspecified open wound, right foot, subsequent encounter (principal) | CPT/HCPCS: 87070; 87077; 87181; 87205 ==

== ENCOUNTER 2018-06-03 08:00 | Outpatient (CLI) | payer MEDICARE | END 2018-06-03 23:59 | disposition home or self-care (01) | LOC: LAB.R 08:00 | PROVIDERS: ATTEND Physician Assistant | DX: S91.301D Unspecified open wound, right foot, subsequent encounter (principal) | CPT/HCPCS: 87070; 87077; 87181; 87205 ==

== ENCOUNTER 2018-06-30 10:43 | Outpatient (CLI) | payer MEDICARE ==
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
--- NOTE | 2018-07-01 10:02 | Nuclear Medicine Report ---
Reason: UNSPECIFIED OJPEN WOUND,RIGHT FOOT,SUBSEQUENT ENCO Procedure Date: 06/30/2018 Accession Number: [id number] / [id number] Procedure: NM - Bone 3-Phase CPT Code: FULL RESULT: EXAM: TRIPLE-PHASE BONE SCAN LIMITED EXAM DATE: 06/30/2018 03:22 PM. CLINICAL HISTORY: UNSPECIFIED OJPEN WOUND,RIGHT FOOT,SUBSEQUENT ENCO. COMPARISON: No relevant imaging currently available for comparison. TECHNIQUE: Patient was injected with 27.8 mCi of technetium 99m MDP intravenously with flow phase gamma camera imaging anteriorly over the feet, 5 seconds per frame for 1 minute. Subsequently, blood pool images of the feet were obtained. The patient returned 3 hours later for multiple spot images of the feet. FINDINGS: Flow Phase: There is mild to moderate asymmetric flow to the region of the medial right midfoot and hindfoot. Blood Pool Phase: There is moderate asymmetric uptake/activity at the medial right midfoot and at the hindfoot in the region of the calcaneal tuberosity. Delayed Phase: There is moderate asymmetric uptake at the medial right midfoot in the region of the first and/or second metatarsals, and mild uptake at the hindfoot in the region of the calcaneal tuberosity. IMPRESSION: 1. Abnormal bone scan with three-phase uptake most conspicuous at the medial right midfoot in the region of the first and/or second metatarsals and to a lesser degree the right hindfoot in the region of the calcaneal tuberosity, as described above. Findings could reflect osteomyelitis in the correct clinical context. MR could be considered for further imaging evaluation as clinically warranted. [facility]
== END 2018-06-30 10:44 | disposition home or self-care (01) ==
LOC: DI 10:43
PROVIDERS: ATTEND Physician Assistant
DX: M85.871 Other specified disorders of bone density and structure, right ankle and foot (principal); L08.9 Local infection of the skin and subcutaneous tissue, unspecified; S91.301D Unspecified open wound, right foot, subsequent encounter
CPT/HCPCS: 78315

== ENCOUNTER 2018-11-13 11:14 | Outpatient (CLI) | payer MEDICARE | END 2018-11-13 11:15 | disposition E | LOC: EMS 11:14 | PROVIDERS: ATTEND Surgery | CPT/HCPCS: A0425; A0429 ==